=== PATIENT | male | born 1955 | race Caucasian/White ===

== ENCOUNTER 2020-04-17 09:43 | Outpatient (CLI) | payer MEDICARE, SELFPAY ==
[2020-04-17 09:50] VITALS: BMI 25.0
[2020-04-17 10:29] LABS: Albumin Level 4.6 g/dl (3.5-5.0)
[2020-04-17 10:31] LABS: Calcium 9.6 mg/dl (8.4-10.2); Creatinine Clearance Estimated 77 mL/min (50-200); Estimated Glomerular Filt Rate 75 ml/min (>60); GFR (African American) 91 ML/MIN (>60)
[2020-04-17 10:47] VITALS: BP 141/87; PULSE 66; RESP 18; TEMP 36.1; O2SAT 96
[2020-04-17 11:07] VITALS: BP 127/71; PULSE 57; RESP 18
== END 2020-04-17 11:07 | disposition home or self-care (01) ==
LOC: INF 09:45
PROVIDERS: PCP Family Medicine; Visit Provider Family Medicine
DX: M88.89 Osteitis deformans of multiple sites (principal)
CPT/HCPCS: 82040; 82310; 82565; 96374; J3489

== ENCOUNTER → 2022-07-31 13:55 | Outpatient (CLI) | payer MEDICARE, SELFPAY ==
--- NOTE | 2022-07-31 13:58 | XR_ITS ---
FINAL REPORT CLINICAL HISTORY: cough, soa, pt states spot was seen on a previous cxr years ago FINDINGS: PA and lateral views of the chest are obtained. There is no prior exam for comparison. The cardiac and mediastinal silhouettes are within normal limits. Note is made of emphysema. The lungs are otherwise clear. There is no pleural effusion, pneumothorax, or acute osseous abnormality. IMPRESSION: No radiographic evidence of acute cardiac or pulmonary disease. Reviewed, Interpreted and Dictated by Nunu South MD Transcribed by Frances rBavo Authenticated and [facility]
== END ==
PROVIDERS: PCP Family Medicine; Visit Provider Family Medicine
DX: J45.20 Mild intermittent asthma, uncomplicated (principal)
CPT/HCPCS: 71046

== ENCOUNTER → 2023-02-08 10:12 | Outpatient (CLI) | payer MEDICARE, SELFPAY ==
[2023-02-08 19:51] LABS: Basophils # 0.1 K/mm3 (0-0.2); Basophils % 0.6 % (0.1-2.0); Eosinophils # 0.1 K/mm3 (0.0-0.4); Eosinophils % 1.3 % (0.1-12.0); Hematocrit 50.6 % (42.0-52.0); Hemoglobin 15.8 g/dL (14.1-18.0); Lymphocytes # 1.5 K/mm3 (0.7-4.5); Lymphocytes % 20.2 % (10-50); Mean Corpuscular HGB Conc 31.2 g/dL (31.8-35.4); Mean Corpuscular Hemoglobin 30.2 pg (27.0-31.2); Mean Corpuscular Volume 96.5 fl (80-94); Mean Platelet Volume 8.9 fl (7.4-10.4); Monocytes # 0.6 K/mm3 (0.1-1.0); Neutrophils # 5.3 K/mm3 (1.8-7.8); Neutrophils % 69.8 % (37.0-80.0); Platelet Count 341 K/mm3 (142-424); Red Blood Count 5.24 M/mm3 (4.60-6.20); Red Cell Distribution Width 12.9 % (11.5-17.5); White Blood Count 7.6 K/mm3 (4.8-10.8)
[2023-02-08 19:56] LABS: Alanine Aminotransferase 30 U/L (12-78); Albumin Level 4.5 g/dl (3.5-5.0); Albumin/Globulin Ratio 1.3 (1.1-1.8); Alkaline Phosphatase 71 U/L (38-126); Aspartate Amino Transferase 28 U/L (17-59); Bilirubin,Total 0.7 mg/dl (0.2-1.3); Blood Urea Nitrogen 16 mg/dl (9-20); Calcium 9.6 mg/dl (8.4-10.2); Carbon Dioxide 29 mmol/L (22.0-30.0); Chloride 104 mmol/L (98-107); Chol/HDL Ratio 3.1 (1-3.5); Cholesterol 188 mg/dl (140-200); Estimated Glomerular Filt Rate 84 ml/min (>60); GFR (African American) 102 ML/MIN (>60); Globulin 3.4 g/dL (1.3-3.2); Glucose 99 mg/dl (74-100); HDL Cholesterol 60 mg/dl (40-60); Sodium 140 mmol/L (136-145); Total Protein,Serum 7.9 g/dl (6.3-8.2); Triglycerides 84 mg/dl (30-150); VLDL Cholesterol 17 mg/dL (0-40)
[2023-02-08 20:07] LABS: Direct LDL Cholesterol 98.58 mg/dL (100-129)
[2023-02-08 20:24] LABS: Prostate Specific Ag Screen 1.8 ng/ml (0.0-4.0)
== END ==
PROVIDERS: PCP Family Medicine; Visit Provider Family Medicine
DX: S81.801A Unspecified open wound, right lower leg, initial encounter (principal); J45.909 Unspecified asthma, uncomplicated; E78.5 Hyperlipidemia, unspecified; Z12.5 Encounter for screening for malignant neoplasm of prostate
CPT/HCPCS: 80053; 80061; 85025; 87070; 87205; G0103

== ENCOUNTER 2023-09-28 12:09 | Outpatient (CLI) | payer MEDICARE, SELFPAY | END 2023-09-28 23:59 | disposition home or self-care (01) | LOC: LAB.DROPOF 09-29 12:09 | PROVIDERS: PCP Nurse Practitioner; Visit Provider Nurse Practitioner | DX: L08.9 Local infection of the skin and subcutaneous tissue, unspecified; B95.7 Other staphylococcus as the cause of diseases classified elsewhere; S81.802A Unspecified open wound, left lower leg, initial encounter | CPT/HCPCS: 87070; 87077; 87186; 87205 ==

== ENCOUNTER 2023-11-30 13:43 | Outpatient (POV) | payer MEDICARE, SELFPAY | END 2023-11-30 23:59 | disposition home or self-care (01) | LOC: SC 13:43 | PROVIDERS: PCP Nurse Practitioner; Visit Provider Dermatology | DX: Z00.00 Encounter for general adult medical examination without abnormal findings (principal) ==

== ENCOUNTER 2024-07-27 10:42 | Outpatient (CLI) | payer MEDICARE, OTHER, SELFPAY ==
[2024-07-27 18:37] LABS: Basophils # 0.1 K/mm3 (0-0.2); Eosinophils # 0.1 K/mm3 (0.0-0.4); Eosinophils % 1.2 % (0.1-12.0); Hematocrit 50.5 % (42.0-52.0); Hemoglobin 16.6 g/dL (14.1-18.0); Lymphocytes # 1.6 K/mm3 (0.7-4.5); Lymphocytes % 18.7 % (10-50); Mean Corpuscular HGB Conc 32.9 g/dL (31.8-35.4); Mean Corpuscular Hemoglobin 31.4 pg (27.0-31.2); Mean Corpuscular Volume 95.6 fl (80-94); Mean Platelet Volume 9.2 fl (7.4-10.4); Monocytes # 0.8 K/mm3 (0.1-1.0); Monocytes % 9.7 % (1.7-9.3); Neutrophils # 5.8 K/mm3 (1.8-7.8); Neutrophils % 68.9 % (37.0-80.0); Platelet Count 345 K/mm3 (142-424); Red Blood Count 5.28 M/mm3 (4.60-6.20); Red Cell Distribution Width 12.4 % (11.5-17.5); White Blood Count 8.4 K/mm3 (4.8-10.8)
[2024-07-27 20:29] LABS: Alanine Aminotransferase 27 U/L (12-78); Albumin Level 4.9 g/dl (3.5-5.0); Albumin/Globulin Ratio 1.5 (1.1-1.8); Alkaline Phosphatase 72 U/L (38-126); Anion Gap 18.8 mEq/L (5-15); Aspartate Amino Transferase 25 U/L (17-59); Bilirubin,Total 0.7 mg/dl (0.2-1.3); Blood Urea Nitrogen 17 mg/dl (9-20); Calcium 10.3 mg/dl (8.4-10.2); Carbon Dioxide 26 mmol/L (22.0-30.0); Chloride 98 mmol/L (98-107); Cholesterol 201 mg/dl (140-200); Estimated Glomerular Filt Rate 84 ml/min (>60); GFR (African American) 101 ML/MIN (>60); Globulin 3.2 g/dL (1.3-3.2); Glucose 93 mg/dl (74-100); HDL Cholesterol 50 mg/dl (40-60); Potassium 4.8 mmoL/L (3.5-5.1); Sodium 138 mmol/L (136-145); Total Protein,Serum 8.1 g/dl (6.3-8.2); Triglycerides 112 mg/dl (30-150); VLDL Cholesterol 22 mg/dL (0-40)
[2024-07-27 20:40] LABS: Direct LDL Cholesterol 104.51 mg/dL (100-129)
[2024-07-27 20:47] LABS: 25-OH Vitamin D, Total 41.5 ng/mL (30-100); T4 (Thyroxine) 9.8 ug/dl (5.53-11.0)
[2024-07-27 21:00] LABS: Prostate Specific Ag Screen 2.1 ng/ml (0.0-4.0); Thyroid Stimulating Hormone 2.78 uIU/mL (0.465-4.68)
== END 2024-07-27 23:59 | disposition home or self-care (01) ==
LOC: LAB.DROPOF 07-28 13:18
PROVIDERS: PCP Nurse Practitioner Family; Visit Provider Nurse Practitioner Family
DX: L03.039 Cellulitis of unspecified toe (principal); B35.1 Tinea unguium; J30.9 Allergic rhinitis, unspecified
CPT/HCPCS: 80053; 80061; 82306; 84436; 84443; 85025; G0103

== ENCOUNTER 2024-11-13 12:21 | Day surgery (SDC) | payer MEDICARE, SELFPAY ==
[2024-11-10 11:09] VITALS: BMI 26.6
[2024-11-13 12:57] VITALS: BP 163/95; PULSE 78; RESP 20; TEMP 36.1; O2SAT 96
--- NOTE | 2024-11-13 13:02 | P.HP_ITS ---
History of Present Illness *Admission Date: 11/13/24 *Reason for visit:: Positive Cologuard *History of present illness: Mr. Chaney is a 69-year-old gentleman who is here for screening colonoscopy secondary to a positive Cologuard test. The examination is deemed medically necessary for screening colonoscopy. The patient has been seen, interviewed and examined prior to the procedure by both myself and the anesthesia provider. [facility] Disclaimer: The information contained in this section may have been updated after the patient was seen, as this information can be updated by other users. Medical History Paget disease Urinary tract infection Asthma Traumatic open wound of left lower leg with infection Neoplasm of uncertain behavior of scalp Allergic rhinitis COPD with exacerbation Surgical History History of appendectomy Family History Other No significant family history Social History Smoking Status: Former smoker alcohol intake: former substance use type: denies use current occupational status: disabled Travel in the last 8 weeks?: None household members: spouse housing: house Have you lived/traveled outside US in past 30 days?: No Contact w/someone who lives/traveled outside US past 30 days?: No Exposure to someone with infectious disease in past 14 days?: No Do you have a fever (greater than 100.4 F or 38 C)?: No Have you tested positive for COVID-19?: No Exposed to someone with COVID-19 in past 14 days?: No Do you have a sore throat?: No Do you have a cough?: No Do you have any weakness?: No Are you experiencing any nausea/vomitting?: No Do you have any diarrhea?: No Are you experiencing any unusual bleeding?: No Do you have any muscle aches/pain?: No Do you have any abdominal pain?: No Are you experiencing loss of taste or smell?: No Other Medical History Have you received the Pneumonia Vaccine: Yes Review of Systems Review of Systems Review of systems (narrative): Negative *Cardiovascular Comments: Negative *Gastrointestinal Comments: Negative *Genitourinary Comments: Negative *Musculoskeletal Comments: Negative *Neurologic Comments: Negative Meds Home Medications and Allergies Home Medications ?Medication ?Instructions ?Recorded ?Confirmed ?Type albuterol sulfate 90 mcg/actuation 2 puff inhalation Q ID PRN 04/20/24 11/10/24 Rx aerosol inhaler shortness of breath or wheez ing #8.5 grams albuterol sulfate 2.5 mg/3 mL See Rx Instructions .Rou te 05/17/24 11/10/24 Rx (0.083 %) solution for nebulization .COMPLEX #1,080 mL fluticasone fur. 200 mcg-umeclid See Rx Instructions . Route 05/29/24 11/10/24 Rx 62.5 mcg-vilant 25 mcg .COMPLEX #180 blisters inhalat.powder (Trelegy Ellipta) cetirizine 10 mg tablet 10 mg PO DAILY #30 tabs 07/0211/10/24 Rx montelukast 10 mg tablet 10 mg PO DAILY #90 tabs 07/0211/10/24 Rx sodium,potassium,mag sulfates 17.5 See Rx Instructions PO .COMPLEX 11/06/24 Rx gram-3.13 gram-1.6 gram oral soln #354 mL (Suprep Bowel Prep Kit) New Prescriptions to Start Prescriptions: Allergies Allergy/AdvReac Type Severity Reaction Status Date / Time No Known Allergies Allergy Verified 11/10/24 11:06 Exam Data for Last 24 hours I & O for Last 24 hours: Intake & Output 11/10/24 11/11/24 11/12/24 11/13/24 23:59 23:59 23:59 23:59 Weight 165 lb *Routine HEENT Exam Head: Present normocephalic Eye: Present EOMI and PERRL ENT: Present mucous membranes moist *Routine Neck Exam Neck: Present supple *Routine Respiratory Exam Respiratory: Present CTA bilaterally *Routine Cardiovascular Exam Cardiovascular: Present RRR *Routine Abdominal Exam Abdominal: Present soft and normoactive bowel sounds; Absent tenderness *Routine Rectal Exam Rectal:: deferred *Routine Genitalia Exam Genitalia:: deferred *Routine Extremities Exam Extremities: Absent cyanosis, clubbing or edema *Routine Skin Exam Skin: Present warm; Absent rash *Routine Neurological Exam Neurological: Present alert and oriented X3 Assessment and Plan *Assessment and plan (1) Positive colorectal cancer screening using Cologuard test: Status: Acute Category: Medical Code(s): R19.5 - Other fecal abnormalities Plan A/P: 1. Positive Cologuard test is the preprocedural diagnosis. The patient will be anesthetized/sedated using MAC sedation. The patient has been seen and examined. Cardiac and lung assessment prior to the examination is stable. Proceed with planned screening colonoscopy.
[2024-11-13] MEDS: LACTATED RINGERS 1000ML 1,000 ML 50 ML IV (13:03)
--- NOTE | 2024-11-13 13:12 | P.PNANES_ITS ---
[facility] Disclaimer: The information contained in this section may have been updated after the patient was seen, as this information can be updated by other users. Medical History Paget disease Urinary tract infection Asthma Traumatic open wound of left lower leg with infection Neoplasm of uncertain behavior of scalp Allergic rhinitis COPD with exacerbation Surgical History History of appendectomy Family History Other No significant family history Social History Smoking Status: Former smoker alcohol intake: former substance use type: denies use current occupational status: disabled Travel in the last 8 weeks?: None household members: spouse housing: house Have you lived/traveled outside US in past 30 days?: No Contact w/someone who lives/traveled outside US past 30 days?: No Exposure to someone with infectious disease in past 14 days?: No Do you have a fever (greater than 100.4 F or 38 C)?: No Have you tested positive for COVID-19?: No Exposed to someone with COVID-19 in past 14 days?: No Do you have a sore throat?: No Do you have a cough?: No Do you have any weakness?: No Are you experiencing any nausea/vomitting?: No Do you have any diarrhea?: No Are you experiencing any unusual bleeding?: No Do you have any muscle aches/pain?: No Do you have any abdominal pain?: No Are you experiencing loss of taste or smell?: No [facility] Anesthesia Checklist Patient Identification Patient Identification: Arm Band and Verbal (Name & ) Structural Data Admitted From: Home Planned Operative Procedure/s: colonscopy Verified Documents: Surgical Consent NPO Status Verified Time NPO: 00:00 Chart Verification Results Verified: None Additional verifications Anesthesia Reactions: No Airway Assessment C-Spine Mobility Assessed: Yes TMJ Mobility Assessed: Yes Dentition: Poor Dentition (3 teeth left) Neurological Assessment Level of Consciousness: Awake, Alert and Appropriate Hx Seizures: No Numbness or tingling in extremities: No Anesthesia Plan Anesthesia Risk discussed: Yes Anesthesia Plan: Verified ASA Class: II Anesthesia Type: MAC
--- NOTE | 2024-11-13 13:44 | P.PCN_ITS ---
[facility] Procedure Note Date: 11/13/24 Time: 14:13 Procedure Note:: Colonoscopy Procedure Report: Colonoscopy with cold snare polypectomy Endoscopist: Dejon Villarreal II, MD Referring physician: Jean Carlos Thorpe MD Date of Procedure: November 13, 2024 Equipment: Olympus 190 variable stiffness pediatric colonoscope Sedation: MAC sedation Indication: Mr. Chaney is a 69-year-old gentleman who is here for screening colonoscopy secondary to a positive Cologuard test. This is the patient's first colonoscopy. He reports no abdominal pain, weight loss, change in his bowel habits or rectal bleeding. He reports no family history of colon cancer. Procedure: Prior to the procedure, a history and physical exam was performed, and patient's medications and allergies were reviewed. The risks, benefits and alternatives of the sedation and procedure were discussed with the patient. All questions were answered and informed consent was obtained. The patient was brought to the procedure room. Patient identification and proposed procedure were verified by the physician and the nurse. The patient was placed in a left lateral decubitus position and the scope was passed under direct vision. Throughout the procedure, the patient's blood pressure, pulse, and oxygen saturations were monitored continuously. The colonoscopy was accomplished without difficulty. The patient tolerated the procedure well. Findings: On digital rectal examination there was normal rectal tone. There were no external hemorrhoids. The colonoscope was introduced through the anal canal to the rectum and advanced to the cecum. The ileocecal valve and appendiceal orifice were identified. The scope was advanced a short distance into the ileum which appeared grossly normal. The scope was then withdrawn into the colon. There were 14 colon polyps (cecum x 3 (4, 5 and 13 mm), ascending x 7 (4, 4, 4, 5, 5, 6 and 7 mm), transverse x 1 (4 mm), descending x 1 (5 mm), sigmoid x 1 (5 mm) and rectum x 1 (3 mm)). These were all removed via cold snare polypectomy. The remaining cecum, ascending and transverse colon and mucosa were grossly normal. There were scattered diverticuli throughout the descending and sigmoid colon (LEFT colon). The rectum itself was normal. Upon retroflexion within the rectum there were grade 2 internal hemorrhoids. The preparation was excellent throughout with [place] Preparation Score of 9. The cecal time was 17 minutes. Impression: 1. Colonic polyps x 14 2. Left-sided diverticulosis 3. Grade 2 internal hemorrhoids Plan: I will follow-up the polyp histology and recommend repeat surveillance colonoscopy again in 2 to 3 years based upon the pathology.
[2024-11-13 14:18] VITALS: BP 150/74; PULSE 93; RESP 16; TEMP 36.1; O2SAT 92
[2024-11-13 14:28] VITALS: BP 122/78; PULSE 71; RESP 17; TEMP 36.1; O2SAT 98
[2024-11-13 14:38] VITALS: BP 127/83; PULSE 74; RESP 17; TEMP 36.1; O2SAT 97
[2024-11-13 14:48] VITALS: BP 144/79; PULSE 67; RESP 18; TEMP 36.1; O2SAT 98
== END 2024-11-13 14:54 | disposition home or self-care (01) ==
PROVIDERS: PCP Family Medicine; Visit Provider Internal Medicine Gastroenterology
PROC: 0DJD8ZZ Inspection of Lower Intestinal Tract, Via Natural or Artificial Opening Endoscopic (ICD-10-PCS; CPT 45378; principal; 2024-11-13 14:00)
DX: R19.5 Other fecal abnormalities (principal); D12.2 Benign neoplasm of ascending colon; D12.0 Benign neoplasm of cecum; D12.4 Benign neoplasm of descending colon; D12.5 Benign neoplasm of sigmoid colon; D12.3 Benign neoplasm of transverse colon; D12.8 Benign neoplasm of rectum; K57.30 Diverticulosis of large intestine without perforation or abscess without bleeding; K64.1 Second degree hemorrhoids; J44.9 Chronic obstructive pulmonary disease, unspecified; Z87.891 Personal history of nicotine dependence; Z79.899 Other long term (current) drug therapy; Z79.51 Long term (current) use of inhaled steroids; Z90.49 Acquired absence of other specified parts of digestive tract
CPT/HCPCS: 45385; 88305; J2003; J2704; J7120

== ENCOUNTER 2025-03-22 09:16 | Outpatient (CLI) | payer MEDICARE, SELFPAY ==
[2025-03-22 09:40] LABS: Blood Urea Nitrogen 15 mg/dl (9-20); Creatinine,Serum 0.80 mg/dl (0.66-1.25); Estimated Glomerular Filt Rate 96 ml/min (>60); GFR (African American) 116 ML/MIN (>60)
--- NOTE | 2025-03-22 09:45 | CT_ITS ---
FINAL REPORT TECHNIQUE: Routine axial images were obtained from the lung apices to below the diaphragm following IV contrast administration. Individualized dose reduction techniques using automated exposure control or adjustment of the mA and/or kV according to the patient size were employed. CLINICAL HISTORY: cough, SOB, pulmonary nodule COMPARISON: None FINDINGS: Mediastinal vasculature is well opacified. There is no mediastinal mass or adenopathy. No pleural or pericardial effusion is seen. There are moderate changes of centrilobular emphysema. Scarring is noted at the lung bases. No acute lung disease is present. IMPRESSION: Centrilobular emphysema. Scarring at the lung bases. Reviewed, Interpreted and Dictated by Napoleon Tinoco MD Transcribed by Denisa Rousseau Authenticated and [facility]
[2025-03-22] MEDS: IOPAMIDOL-370 (76%);100ML BOTTLE 75 ML IV (10:16)
[2025-03-22] MEDS: SODIUM CHLORIDE 0.9% 10ML SYR (RAD ONLY) 10 ML IV (10:16)
--- OUTSIDE RECORDS SUMMARY | 2025-03-22 10:24 | XMS_ITS | Encounter Summary ---
Author Organization [facility] Address [address] [place] [address] [place] [address] Phone Care Team Providers Care Pin Drafter Name Role Phone Yaw Thorpe MD Primary Care Provider [phone] Hermelinda John MD Unavailable [phone] Reason for Referral * Other (Routine) - Closed Specialty Diagnoses / Procedures Referred By Contac t Referred To Contact Procedures COMPLETE PFT HISTORICAL MED Referral ID Status Reason Start Date Expiration Date V isits Requested Visits Authorized [id number] Closed Specialty Services Required 04/24/2016 04/24/2017 1 1 Encounter Details Date Type Department Care Team (Late st Contact Info) Description 04/24/2016 [facility] V[facility] [id number] [place] [address] [address] [place] [address] Social History Tobacco Use Types Packs/Day Years Used Date Smoking Tobacco: Former Sex and Gender Information Value Date Recorded Sex Assigned at Not on file Legal Sex Male 9:36 AM EST Gender Identity Not on file Sexual Orientation Not on file documented as of this encounter Plan of Treatment Not on file documented as of this encounter Procedures Procedure Name Priority Date/Time Associated Diagnosis Comments PF COMPLETE PFT Routine 06/03/2015 documented in this encounter Results * COMPLETE PFT (06/03/2015) Historical Med PFT ORDERABLES Final Result documented in this encounter Visit Diagnoses Not on filedocumented in this encounter Care Teams Pin Drafter Relationship Specialty Start Date End Date Yaw Thorpe MD PCP - General Family Medicine 04/28/16 Hermelinda John MD Attending Physician Pulmonology 04/28/16 documented as of this encounter
--- OUTSIDE RECORDS SUMMARY | 2025-03-22 10:24 | XMS_ITS | Encounter Summary ---
Author Organization [facility] Address [address] [place] [address] [place] [address] Phone Care Team Providers Care Spout Liner Helper Name Role Phone Yaw Thorpe MD Primary Care Provider [phone] Hermelinda John MD Unavailable [phone] Reason for Referral * MRI/CAT Scan (Routine) - Closed Specialty Diagnoses / Procedures Referred By Contac t Referred To Contact Radiology Procedures CT CHEST W CONTRAST [facility]ORICAL [facility] Referral ID Status Reason Start Date Expiration Date V isits Requested Visits Authorized [id number] Closed Specialty Services Required 04/20/2016 04/20/2017 1 1 Encounter Details Date Type Department Care Team (Late st Contact Info) Description 04/20/2016 [facility] [place] [facility] [place] [facility] [address] [place] [address] Social History Tobacco Use Types Packs/Day Years Used Date Smoking Tobacco: Never Assessed Sex and Gender Information Value Date Recorded Sex Assigned at Not on file Legal Sex Male 9:36 AM EST Gender Identity Not on file Sexual Orientation Not on file documented as of this encounter Plan of Treatment Not on file documented as of this encounter Procedures Procedure Name Priority Date/Time Associated Diagnosis Comments CT CHEST W CONTRAST Routine 04/06/2016 XR CHEST PA AND LATERAL Routine 03/30/2016 LAB SCAN Routine 03/02/2016 documented in this encounter Results * CT CHEST W CONTRAST (04/06/2016) Anatomical Region Laterality Modality Chest Computed Tomogra phy us Historical Med CT Final Result * XR CHEST PA AND LATERAL (03/30/2016) Anatomical Region Laterality Modality Chest Radiographic Veronica ging [facility] RAD Final Result * LAB SCAN (03/02/2016) [facility] LAB BLOOD ORDERABLES Final Resul t documented in this encounter Visit Diagnoses Not on filedocumented in this encounter Care Teams Spout Liner Helper Relationship Specialty Start Date End Date Yaw Thorpe MD PCP - General Family Medicine 04/28/16 Hermelinda John MD Attending Physician Pulmonology 04/28/16 documented as of this encounter
--- OUTSIDE RECORDS SUMMARY | 2025-03-22 10:24 | XMS_ITS | Clinical Summary ---
Author Organization [facility] Address [address] [place] [address] Care Team Providers Care Cleaner Housekeeping Name Role Phone Yaw Thorpe MD Primary Care Provider [phone] Hermelinda John MD Unavailable [phone] Allergies No known active allergies Medications albuterol 108 (90 BASE) MCG/ACT AERS Use 1-2 puffs every 4 (four) hours as needed. Active alendronate (FOSAMAX) 70 MG TABS Take 70 mg by mouth every 7 days. Active mometasone-formo terol (DULERA) 200-5 MCG/ACT AERO Use 2 puffs 2 (two) times daily. Active Active Problems Problem Noted Date Diagnosed Date Right Lung mass 04/28/2016 Family History Medical History Relation Name Comments Other Mother pagets disease Lung cancer Sister Relation Name Status Comments Father Mother Sister Social History Tobacco Use Types Packs/Day Years Used Date Smoking Tobacco: Former Cigarettes 1.5 Q uit: 04/28/2002 Sex and Gender Information Value Date Recorded Sex Assigned at Not on file Legal Sex Male 9:36 AM EST Gender Identity Not on file Sexual Orientation Not on file Last Filed Vital Signs Vital Sign Reading Time Taken Comments Blood Pressure 148/82 04/28/2016 12:30 PM EST Pulse 73 04/28/2016 12:30 PM EST Temperature 36.9 C (98.5 F) 04/28/2016 12:30 PM EST Respiratory Rate 20 04/28/2016 12:30 PM EST Oxygen Saturation 98% 04/28/2016 12:30 PM EST Inhaled Oxygen Concentration - - Weight 75.8 kg (167 lb) 04/28/2016 12:30 PM EST Height 170.2 cm (5' 7 ) 04/28/2016 12:30 PM EST Body Mass Index 26.16 04/28/2016 12:30 PM EST Plan of Treatment Health Maintenance Due Date Last Done Comments Hepatitis C Screening 1955 DTap,Tdap,and Td (1 - Tdap) 1966 Colonoscopy 2000 PSA YEARLY 2005 Pneumococcal 50+ (1 of 1 - PCV) 2005 Shingrix (#1) 2005 Influenza Vaccine (#1) 2025 RSV Vaccine (60+ or ) (1 - 1-dose 75+ series) 2030 Abdominal Aortic Aneurysm Screening Completed 08/04/2016, 04/06/2016 HPV Aged Out No longer eligi ble based on patient's age to complete this topic Meningococcal conjugate lexie nt 4 (MCV4) Aged Out No longer eligible b ased on patient's age to complete this topic RSV Immunization (<20 months) Aged Out No longer eligible based on patient's age to complete this topic Procedures Procedure Name Priority Date/Time Associated Diagnosis Comments CT CHEST W CONTRAST Routine 08/04/2016 1 0:55 AM EDT Right Lung mass from Last 3 Months or Most Recently Relevant to Health Maintenance Results * CT CHEST W CONTRAST (08/04/2016 10:55 AM EDT) Anatomical Region Laterality Modality Abdomen, Abdomen Pelvis, Chest C omputed Tomography 08/04/2016 12:0 0 PM EDT Impressions 08/04/2016 12:06 PM EDT New 4 mm left upper lobe pulmonary nodule. Recommend follow-up [address] of the chest to ensure resolution/stability. Please see above guidelines. Mild to moderate centrilobular emphysema. Resolved opacity previously noted in the right upper lobe. Narrative 08/04/2016 12:06 PM EDT HISTORY: Follow-up of a previous opacity in the right upper lobe. COMPARISON: 04/06/2016. TECHNIQUE: Postcontrast multiplanar CT images of the chest FINDINGS: LUNGS/AIRWAYS: Mild to moderate centrilobular emphysema. Previously noted opacity in the posterior right upper lobe has resolved. There is a 4 mm solitary pulmonary nodule in the posterior left lower lobe (series 3, image 33), new since the prior study. Calcified granuloma at the left lower lobe. PLEURA: Unremarkable. No pleural effusion or pneumothorax. HEART: Unremarkable AORTA: Mild atherosclerotic calcifications. No thoracic aortic aneurysm. MEDIASTINUM: Small calcified nodes are compatible with old granulomatous disease. SOFT TISSUES: Unremarkable UPPER ABDOMEN: Unremarkable BONES: Unremarkable OTHER: None Guidelines recommend that patients without known primary cancer or immunosuppression with solid nodule less than 6 mm in average diameter do not require routine follow up. Patients with known primary cancer should receive three month follow-up CT. Certain high risk patients with suspicious nodule morphology or upper lobe location may warrant a [address] This report was marked for documented transmission to the ordering physician's office per department protocol. Procedure Note Jian Holman MD - 08/04/2016 HISTORY: Follow-up of a previous opacity in the right upperlobe. COMPARISON: 04/06/2016. TECHNIQUE: Postcontrast multiplanar CT images of the chest FINDINGS: LUNGS/AIRWAYS: Mild to moderate centrilobular emphysema. Previously notedopacity in the posterior right upper lobe has resolved. There is a 4 mmsolitary pulmonary nodule in the posterior left lower lobe (series 3,image 33), new since the prior study. Calcified granuloma at the left lower lobe. PLEURA: Unremarkable. No pleural effusion or pneumothorax. HEART: Unremarkable AORTA: Mild atherosclerotic calcifications. No thoracic aorticaneurysm. MEDIASTINUM: Small calcified nodes are compatible with old granulomatousdisease. SOFT TISSUES: Unremarkable UPPER ABDOMEN: Unremarkable BONES: Unremarkable OTHER: None Guidelines recommend that patients without known primary cancer orimmunosuppression with solid nodule less than 6 mm in average diameter donot require routine follow up. Patients with known primary cancer shouldreceive three month follow-up CT. Certain high risk patients with suspicious nodule morphology or upper lobelocation may warrant a [address] This report was marked for documented transmission to the orderingphysician's office per department protocol. IMPRESSION New 4 mm left upper lobe pulmonary nodule. Recommend follow-up 12 [address]of the chest to ensure resolution/stability. Please see aboveguidelines. Mild to moderate centrilobular emphysema. Resolved opacity previously noted in the right upper lobe. us Yaw Mccullough MD CT Final Result from Last 3 Months or Most Recently Relevant to Health Maintenance Insurance MEDICARE on file Care Teams Cleaner Housekeeping Relationship Specialty Start Date End Date Yaw Thorpe MD PCP - General Family Medicine 04/28/16 Hermelinda John MD Attending Physician Pulmonology 04/28/16
--- OUTSIDE RECORDS SUMMARY | 2025-03-22 10:24 | XMS_ITS | Clinical Summary ---
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 3 Inhaler 3 6 Active meloxicam (MOBIC) 15 mg Oral Tablet Take 15 mg by mouth daily. Active fluticasone-umecl idin-vilanter (TRELEGY ELLIPTA) 200-62.5-25 mcg Inhl Disk with Device Inhale 1 Puff into the lungs daily at 0900. Active predniSONE (DELTASONE) 20 mg Oral Tablet Take 20 mg by mouth daily. Will finish on 08/19/22, taking for COPD flare up Active calcium carbonate/vitamin D3 (CALCIUM 600 + D,3, ORAL) Take by mouth daily. Active albuterol (PROVENTIL) 2.5 mg /3 mL (0.083 %) Inhl Solution for Nebulization 2.5 mg every 4 hours as needed. 3 Active Active Problems Problem Noted Date Diagnosed Date Lump on finger, right 08/17/2022 Overview (08/17/2022): Added automatically from request for surgery [id number] Soft tissue mass 08/17/2022 Overview (08/17/2022): Added automatically from request for surgery [id number] Surgical History Surgery Date Site/Laterality Comments APPENDECTOMY at age 10 KNEE ARTHROSCOPY Bilateral FINGER SURGERY 08/19/2022 Right Excision of Mass of Right Index Finger ; Surgeon: Jose G Gautam MD; Location: [facility]; Service: Hand Medical History Medical History Date Comments Arthritis Emphysema of lung (HCC) Paget's disease of bone SHI (dyspnea on exertion) Pneumonia hx of Lung nodule [place] (hard of hearing) has hearin g aids but does not wear them Family History Medical History Relation Name Comments Cirrhosis Father High Blood Pressure Mother Anesth Problems Neg Hx Relation Name Status Comments Father Mother Social History Tobacco Use Types Packs/Day Years Used Date Smoking Tobacco: Former Cigarettes 1 25 97 - 1997 Passive Smoke Exposure: Never Smokeless Tobacco: Never Tobacco Cessation:Counseling Given: Not Answered Comments:06/03/2015 quit 10 plus yrs ago- around 2002 Alcohol Use Standard Drinks/Week Comments No 0 (1 standard drink = 0.6 oz pur e alcohol) Sex and Gender Information Value Date Recorded Sex Assigned at Not on file Legal Sex Male 8:42 PM EDT Gender Identity Not on file Sexual Orientation Not on file Last Filed Vital Signs Vital Sign Reading Time Taken Comments Blood Pressure 162/80 08/19/2022 9:31 AM EDT Pulse 59 08/19/2022 9:31 AM EDT Temperature 36.4 C (97.5 F) 08/19/2022 9:04 AM EDT Respiratory Rate 16 08/19/2022 9:31 AM EDT Oxygen Saturation 97% 08/19/2022 9:31 AM EDT Inhaled Oxygen Concentration - - Weight 74.4 kg (164 lb) 08/18/2022 9:32 AM EDT Height 167.6 cm (5' 6 ) 08/18/2022 9:32 AM EDT Body Mass Index 26.47 08/18/2022 9:32 AM EDT Plan of Treatment Health Maintenance Due Date Last Done Comments Wellness Exam Medicare 1958 Hepatitis C Screening 1973 DTaP/TDaP/Td (1 - Tdap) 1974 Cologuard 2000 Colon Cancer Screening 2000 Colonoscopy 2000 FIT 2000 Sigmoidoscopy 2000 Virtual Colonography 2000 Zoster (3 of 3) 03/29/2020 02/02/2020, 09/13/2015 AAA Screening 2020 Pneumococcal Vaccine 50+ (2 of 2 - PCV) 03/18/2021 03/18/2020 COVID-19 Vaccine (4 - season) 2025 03/17/2021, 08/07/2020, 07/10/2020 Influenza Vaccine (#1) 2025 2, 03/17/2021, 02/02/2020, Additional history exists Hepatitis B Vaccine Aged Out No longe r eligible based on patient's age to complete this topic Meningococcal B Vaccine Aged Out No l onger eligible based on patient's age to complete this topic Insurance [employer] PPO MR [employer] PPO MR Care Teams Coffee Sommelier Relationship Specialty Start Date End Date Yaw Thorpe MD PCP - General Family Medicine 05/17/15
== END 2025-03-22 23:59 | disposition home or self-care (01) ==
LOC: RAD 09:17
PROVIDERS: PCP Family Medicine; Visit Provider Nurse Practitioner
DX: J43.2 Centrilobular emphysema (principal); J98.4 Other disorders of lung; R91.1 Solitary pulmonary nodule
CPT/HCPCS: 36415; 71260; 82565; 84520; Q9967